=== PATIENT | female | born 1960 | race Caucasian/White ===

== ENCOUNTER 2023-06-28 06:35 | Outpatient (RCR) | payer OTHER, SELFPAY | END 2023-06-28 23:59 | disposition home or self-care (01) | LOC: RPT 06:35 | PROVIDERS: ATTENDING PHYSICIAN Family Medicine; PRIMARYCARE PHYSICIAN Family Medicine | DX: M54.16 Radiculopathy, lumbar region (principal); R20.0 Anesthesia of skin; R29.898 Other symptoms and signs involving the musculoskeletal system; R26.89 Other abnormalities of gait and mobility | CPT/HCPCS: 97110; 97162 ==

== ENCOUNTER 2023-07-05 06:55 | Outpatient (RCR) | payer OTHER, SELFPAY | END 2023-07-05 23:59 | disposition home or self-care (01) | LOC: RPT 06:55 | PROVIDERS: ATTENDING PHYSICIAN Family Medicine; PRIMARYCARE PHYSICIAN Family Medicine | DX: M54.16 Radiculopathy, lumbar region (principal); R29.898 Other symptoms and signs involving the musculoskeletal system; R20.0 Anesthesia of skin; R26.89 Other abnormalities of gait and mobility | CPT/HCPCS: 97110 ==

== ENCOUNTER 2023-08-02 06:55 | Outpatient (RCR) | payer OTHER, SELFPAY | END 2023-08-03 07:30 | disposition home or self-care (01) | LOC: RPT 06:55 | PROVIDERS: ATTENDING PHYSICIAN Family Medicine; PRIMARYCARE PHYSICIAN Family Medicine | DX: M54.16 Radiculopathy, lumbar region (principal); R29.898 Other symptoms and signs involving the musculoskeletal system; R20.0 Anesthesia of skin; Z73.6 Limitation of activities due to disability; R26.89 Other abnormalities of gait and mobility | CPT/HCPCS: 97110 ==

== ENCOUNTER → 2024-05-18 08:43 | Outpatient (REF) | payer OTHER, SELFPAY | LOC: HWRAD 08:43 | PROVIDERS: ATTENDING PHYSICIAN Nurse Practitioner Adult Health; FAMILY PHYSICIAN Family Medicine | DX: F17.210 Nicotine dependence, cigarettes, uncomplicated (principal) | CPT/HCPCS: 71271 ==

== ENCOUNTER → 2024-10-26 08:33 | Outpatient (REF) | payer OTHER, SELFPAY | LOC: HWWDC 08:33 | PROVIDERS: ATTENDING PHYSICIAN Student in an Organized Health Care Education/Training Program | DX: Z12.31 Encounter for screening mammogram for malignant neoplasm of breast (principal) | CPT/HCPCS: 77063; 77067 ==

== ENCOUNTER 2025-03-01 06:17 | Day surgery (SDC) | payer OTHER, SELFPAY | END 2025-03-01 09:32 | disposition home or self-care (01) | LOC: GI 06:17 | PROVIDERS: ATTENDING PHYSICIAN Internal Medicine Gastroenterology | DX: Z12.11 Encounter for screening for malignant neoplasm of colon (principal); K64.8 Other hemorrhoids; K57.30 Diverticulosis of large intestine without perforation or abscess without bleeding; K63.5 Polyp of colon; K62.1 Rectal polyp; Z86.0100 Personal history of colon polyps, unspecified | CPT/HCPCS: 45380; 88305 ==